=== PATIENT | female | born 1995 | race Native Hawaiian/Other Pacific Islander ===

== ENCOUNTER 2025-05-07 10:51 | Outpatient (CLI) | payer BC | END 2025-05-07 23:59 | disposition home or self-care (01) | LOC: WOU 10:51 | PROVIDERS: ATTEND Student in an Organized Health Care Education/Training Program | DX: N62 Hypertrophy of breast (principal); L30.4 Erythema intertrigo; L83 Acanthosis nigricans; M54.2 Cervicalgia | CPT/HCPCS: G0463 ==